=== PATIENT | female | born 1960 | race Caucasian/White ===

== ENCOUNTER → 2016-08-18 | Outpatient (CLI) | payer OTHER ==
[2016-08-18 18:50] VITALS: BP 111/69
== END ==
LOC: MHUC 18:01
PROVIDERS: ATTEND Physician Assistant Medical
DX: J06.9 Acute upper respiratory infection, unspecified (principal)
CPT/HCPCS: 99213

== ENCOUNTER → 2016-10-17 | Outpatient (CLI) | payer OTHER ==
[~2016-10-17] MED LIST: AZIT250T PO; CEFD300C PO; GUAI600T3 PO; LANS15CA16 PO; LEVO500T16 PO; LEVO500T80 PO; MULT-954 PO; OMEG10005 PO; PRED20TA PO
[2016-10-17 20:06] VITALS: BP 105/72
--- NOTE | 2016-10-17 20:06 | Urgent Care T Sheet Gen (E) ---
Intake General Temperature (Fahrenheit): 98.5 Pulse: 69 Blood Pressure Systolic: 105 Blood Pressure Diastolic: 72 Respirations: 18 SPO2: 96 Chief Complaint: UC Ear/Nose/Throat Complaint Description of Symptoms Pt presents with new onset of nasal congestion. States her sx began yesterday. Pt states she has been running herself down with work. States she has fatigue. Has itchy, watery eyes. States she has clear nasal drainage. States she has cough. has been taking her prescription allergy medication and steroid nasal spray. She has not been using her palmira pot and has noticed a difference. Source: Patient History of Present Illness Onset & Duration: Days (one ) Timing: Still present Severity: Mild Modifying Factors: None Associated Symptoms: Cough, Nasal congestion, Sinus congestion Recent Trauma: No Similar Sympotms Previously: Yes Allergies: Coded Allergies: Penicillins (Verified Allergy, 07/23/13) Home Meds Active Scripts Levofloxacin (Levaquin)500 Mg Tablet1 Tab PO DAILY Infection #10 TAB Ref 0 Prov:JOSE J PARKER 06/21/16 Prednisone 20 Mg [id number] Mg PO BID WITH MEALS Inflammation #10 TAB Ref 0 Prov:MARGARITA CURTIS 06/12/16 Levofloxacin 500 Mg [id number] Mg PO DAILY Infection #10 TAB Ref 0 Prov:MARGARITA CURTIS 06/12/16 Reported Medications Multivitamin (Multi Vitamin Daily)1 Each Tablet1 Each PO DAILY 07/29/14 Marked Tree-3 Fatty Acids (Marked Tree-3)1,000 Mg Capsule1,000 Mg PO DAILY 07/29/14 Guaifenesin (Mucinex)600 Mg Tablet.er600 Mg PO BID 07/25/13 Lansoprazole (Prevacid)15 Mg Capsule.dr15 Mg PO DAILY 07/23/13 Respiratory Constitutional Symptoms: No Chills, No Diaphoresis, No Fever, No Malaise, No Weakness EENTM: Eye tearingNo Double Vision, No Ear pain, No Ear discharge, No Nose Pain, Nose CongestionNo Throat pain, No Throat swelling, No Mouth Pain, No Mouth Swelling Respiratory: CoughNo Short of breath, No Stridor Cardiovascular: No Chest pain, No Edema, No Palpitations, No Syncope Gastrointestinal/Abdominal: No symptoms reported Musculoskeletal: No symptoms reported Skin: No symptoms reported Neurological: No symptoms reported All Other Systems Reviewed Remaining Systems: All other systems reviewed with negative findings Past Mueltne-Xifsdl-Ghqgcs Hx Patient's Social History Alcohol Use: Denies Use Smoking Status: Never smoker Infectious Disease Exposure: No Recent foreign travel: No Immunizations Up to Date Date Pneumonia Vaccine Receive: Jul 30, 2013 Surgeries/Hospitalizations Hospitalization/Surgery Hx: c section 1992, child - 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 Respiratory Respiratory History: None Comment: frequent bronchitis Cardiovascular Cardiovascular History: None Neuro/Muscular Neuro/Muscular History: None Reproductive System Sexually Transmitted Diseases: No Genitouinary Genitourinary History: Hesitancy Gastrointestinal GI/Endocrine History: GERD Diabetes Diabetes: No HEENT Impaired Vision: Glasses Hearing Impaired: None Integumentary Integumentary History: Eczema Cancer History of Cancer?: No Psychosocial Behavior Disorders: None Blood Transfusions Hx of Blood transfusions: No Physical Exam Physical Exam General Appearance: WD/WN No apparent distress Eyes, Ears, Nose, Throat Ex: PERRL/EOMI TMs normal Pharynx normal Other ( Nasal mucosa mildly inflamed with clear drainage) Respiratory Exam: Chest non-tender Lungs clear Normal breath sounds No respiratory distress No accessory muscles usedNo Respiratory distress, No Accessory muscle use, No Wheezes Cardiovascular Exam: Regular rate, rhythm No edema GI/ Exam: Non tender Skin Exam: Normal color Neurologic/Psychiatric Exam: Oriented times 4 CN's II-X nml No motor deficits No sensory deficits Mood/affect nml Lymphatic Exam: No adenopathy Departure Urgent Care Impression Chief Complaint: UC Ear/Nose/Throat Complaint Impression: Primary Impression: Upper respiratory infection Departure Disposition: 01 HOME OR SELF-CARE Condition: Stable Referrals: Jacinto Gutierrez MD (PCP) Additional Instructions: Acknowledged Pt's discomfort. Advised that given duration of sx this is viral. Discussed abx misuse and that at this time are not warranted. Encouraged Tylenol for analgesia. Encouraged use of nasal irrigation. Called in Ipratropium 0.03% nasal spray 2 sprays each nostril TID x 7days to help with sx relief. Advised that if sx persist, worse or if fever or chills to RTC. Follow up with PCP. Pt agreed with plan of care. End of report . JORGE AMOS APRN Oct 17, 2016 20:06
--- NOTE | 2016-10-18 10:48 | Urgent Care Follow Up Note (E) ---
Urgent Care Follow Up Note Patient called stating she isn't doing any better since being seen last night. Most likely suffering from a viral URI however with her history of chronic sinusitis, I have started her on Omnicef and Prednisone, called to [facility]. Scripts Prednisone 20 Mg [id number] Mg PO DAILY #10 TAB 40mg po daily x 3 days then 20mg po daily x 4 days Prov:JOSE J PARKER 10/18/16 Cefdinir 300 Mg [id number] Mg PO BID #14 CAP Prov:JOSE J PARKER 10/18/16 JOSE J PARKER Oct 18, 2016 10:48
== END ==
LOC: MHUC 18:11
PROVIDERS: ATTEND Nurse Practitioner
DX: J06.9 Acute upper respiratory infection, unspecified (principal)
CPT/HCPCS: 99213